=== PATIENT | female | born 1930 | race Caucasian/White ===

== ENCOUNTER 2016-08-18 12:08 | Emergency (ER) | payer MEDICARE ==
[~2016-08-18] VITALS: Ht 167.6 cm; Wt 68.0 kg
[~2016-08-18 12:08] MED LIST: AMLODIPINE BESY1 TAB PO; COUMADIN3 M1 PO; COUMADIN4 M2 PO; LISINOPRIL5 MG PO; MEDS; METOPROLOL SUCC25 M2 PO; OMEPRAZOLE D/R20 MG PO; PLAVIX75 M1 PO; PRAVASTATIN SOD40 MG PO; TRAMADOL HCL50 MG PO; TRIAMTERENE/HCT1 TA3 PO
[2016-08-18 12:42] LABS: BASO % 0.5 % (0.0-1.0); EOS # 0.1 10*3/uL (0.0-0.4); EOS % 1.7 % (1.0-4.0); HEMATOCRIT 39.9 % (37.0-47.0); HEMOGLOBIN 13.4 g/dl (12.0-16.0); LYMPH # 0.8 10*3/uL (1.3-4.4); LYMPH % 13.9 % (27.0-41.0); MEAN CELL VOLUME 91.1 fl (81.0-99.0); MEAN CORPUSCULAR HGB 30.6 pg (27.0-31.0); MEAN CORPUSCULAR HGB CONC 33.6 g/dl (33.0-37.0); MONO # 0.5 10*3/uL (0.1-1.0); NEUT # 4.4 10*3/uL (2.3-7.9); NEUT % 75.6 % (47.0-73.0); PLATELET COUNT AUTOMATED 215 10*3/uL (130-400); RED BLOOD COUNT 4.38 10*6/uL (4.10-5.10); RED CELL DISTRI WIDTH 13.2 % (0-14.5); WHITE BLOOD COUNT 5.8 10*3/uL (4.8-10.8)
[2016-08-18 12:52] LABS: INTERNATIONAL NORM RATIO 1.5 (2.0-3.5); PROTHROMBIN TIME 16.7 SECONDS (9.0-12.4)
[2016-08-18 13:04] LABS: ALBUMIN 4.2 gm/dl (3.1-4.5); BILIRUBIN, TOTAL 0.7 mg/dl (0.2-1.0); MAGNESIUM 2.2 mg/dL (1.5-2.1); POTASSIUM 3.4 mmol/L (3.5-5.1); TOTAL PROTEIN 7.7 gm/dL (6.4-8.2)
[2016-08-18 13:10] LABS: TROPONIN I 0.329 ng/ml (<0.045)
[2016-08-18 13:31] LABS: BILIRUBIN NEGATIVE (NEGATIVE); BLOOD NEGATIVE (NEGATIVE); CLARITY CLEAR (CLEAR); COLOR YELLOW (YELLOW); GLUCOSE NEGATIVE (NEGATIVE); KETONE NEGATIVE (NEGATIVE); LEUKO ESTERASE NEGATIVE (NEGATIVE); NITRITE NEGATIVE (NEGATIVE); PH 5.5 (5.0-9.0); PROTEIN NEGATIVE (NEGATIVE); UROBILINOGEN 0.2 E.U./dl (0.2-1.0)
[2016-08-18 13:39] LABS: URINE REFLEX COMMENT NO (NO); WBC 0-2 wbc/hpf (0-5)
== END 2016-08-18 14:39 | disposition short-term general hospital (02) ==
LOC: ED 12:08
PROVIDERS: Student in an Organized Health Care Education/Training Program
DX: R51 Headache (principal); I63.9 Cerebral infarction, unspecified; I48.91 Unspecified atrial fibrillation; I25.2 Old myocardial infarction; Z86.2 Personal history of diseases of the blood and blood-forming organs and certain disorders involving the immune mechanism; Z79.899 Other long term (current) drug therapy; Z79.01 Long term (current) use of anticoagulants; W01.0XXA Fall on same level from slipping, tripping and stumbling without subsequent striking against object, initial encounter; Y93.89 Activity, other specified; Y92.009 Unspecified place in unspecified non-institutional (private) residence as the place of occurrence of the external cause; Y99.9 Unspecified external cause status

== ENCOUNTER 2017-06-06 01:42 | Inpatient (IN) | payer MEDICARE ==
[~2017-06-06] VITALS: Ht 157.5 cm; Wt 58.7 kg
[2017-06-06] VITALS (10 sets, daily range): BP systolic 103–142; BP diastolic 55–75
--- NOTE | ~2017-06-06 | CON ---
[place], [place] REPORT OF CONSULTATION NAME: JERSON GILBERT UNIT #: [id number] ROOM: [facility] DOCTOR: CHAPO RODRIGUEZ MD BIRTHDATE: [birth year] DOS: 06/06/2017 CARDIOLOGY CONSULTATION REASON FOR CONSULTATION: Chest pain and elevated troponin. HISTORY OF PRESENT ILLNESS: The patient is an 87-year-old woman who is a very poor historian. She appears to have a hard time with dates. Typically, she receives her cardiac care at the [facility] in [place], [place]. However, she presented to the hospital on this occasion after suffering sharp substernal chest pains at home. Her daughter who was visiting gave her 3 baby aspirin and she was transported to the Emergency Room. The patient states that her pains have subsequently resolved and she is currently comfortable. However, her troponin has risen to over 2. Her findings in the hospital are consistent with a non-ST elevation lateral wall myocardial infarction. Confounding her management is the fact that she does have atrial fibrillation and also has a history of previous strokes. She reportedly did have a catheterization and a stent placed in the past. She states that it was within the last 3 or 4 months, but the history obtained in the Emergency Room was that it was a few years ago. On admission, she does not have aspirin listed as one of her home medicines, although she is on Eliquis. The Eliquis would be adequate for stroke prophylaxis with atrial fibrillation, but would not be adequate for stent preservation if she truly did have angioplasty and stenting within the last few months. Past history is obtained mostly from the old records since the patient is a poor historian and no family is available. The patient reportedly did have an acute coronary syndrome with catheterization and angioplasty done at the [facility] in [place]. Those records have been requested. She does have atrial fibrillation. She does have mild chronic kidney disease. She has had a history of stroke. She has a history of hypertension and hyperlipidemia. She is status post hysterectomy. MEDICATIONS: Prior to admission include amlodipine 10 mg daily, apixaban 5 mg b.i.d., escitalopram 5 mg daily, metoprolol 25 mg daily, pravastatin 40 mg at bedtime, prednisone 5 mg q.i.d. (indication not known) and triamterene with hydrochlorothiazide 1 tablet daily. ALLERGIES: The patient denies any drug allergies. FAMILY HISTORY: Both parents are . Her mother of breast cancer. She does not know what caused her father's . REVIEW OF SYSTEMS: The patient denies diplopia. She is easily confused. She denies lightheadedness or syncope. She denies nausea or vomiting. She denies diaphoresis. She does admit to chest heaviness when she climbs stairs. She denies any change in bowel or bladder habits. She denies blood in her urine or stools. She denies any peripheral edema. The remainder of the review of systems is negative except as noted above. SOCIAL HISTORY: The patient lives with her . She does not smoke or [place], [place] REPORT OF CONSULTATION NAME: JERSON GILBERT UNIT #: [id number] ROOM: [facility] DOCTOR: CHAPO RODRIGUEZ MD BIRTHDATE: [birth year] consume alcohol and does not use illicit drugs. PHYSICAL EXAMINATION: GENERAL: The patient is a slender, elderly white female who is awake and alert. VITAL SIGNS: Pulse is 75 and irregularly irregular, blood pressure is 123/62. She is afebrile. She weighs 58.6 kg and has a body mass index of 23.7. HEENT: Normocephalic and atraumatic. Extraocular muscles are intact. Sclerae are clear. Pupils are round and react to light. The oral mucosa is moist. Tongue is midline. NECK: Supple. She does have mild jugular distention when lying at a 45 degree angle. She has no neck or supraclavicular masses and no thyromegaly. RESPIRATORY: Respirations are unlabored. Her chest is clear to auscultation and percussion. She has no presacral edema or chest wall tenderness. HEART: Has an irregularly irregular rhythm. There are no murmurs or gallops. The PMI is not displaced. She has no precordial heave, lift or thrill. ABDOMEN: Soft and normally active without masses, organomegaly or bruits. EXTREMITIES: Showed no edema. Peripheral pulses are absent in the feet. LABORATORY DATA: I reviewed her electrocardiogram. She has atrial fibrillation with a controlled ventricular response and lateral ST changes, but no ST elevation. Serial troponin levels were 0.183 on admission, followed by 0.534, followed by 2.190. Hemoglobin is 13.7, hematocrit 40.3. There were 9600 white cells and 284,000 platelets. Sodium is 140, potassium 3.1, BUN 40, creatinine 1.12. Estimated GFR 46. Lactic acid level was 1.4. Total cholesterol is 175 with LDL of 78 and HDL of 66. IMPRESSIONS: 1. Non-ST elevation myocardial infarction. 2. History of coronary artery disease, status post stent at sometime in the past. 3. History of transient ischemic attack and stroke, details not available. 4. Atrial fibrillation. The patient's rate is well controlled and she is on Eliquis for stroke prophylaxis. 5. Hypertension. 6. Hyperlipidemia, on therapy. PLAN: The patient's management is difficult because her history is largely unknown. If she truly did have a stent within the last 6 months, she should be on dual antiplatelet therapy in addition to a direct oral anticoagulant. We will be requesting records from the [facility] in [place]. For now, however, she will be treated with a heparin drip and aspirin. She is pain free and shows no acute ST elevation, so other medications will be withheld, aside from beta blockers for the time being. Depending on her progress, we may decide on a risk stratifying stress test later in her hospitalization. I thank the hospitalist service for asking our advice regarding her care. [place], [place] REPORT OF CONSULTATION NAME: JERSON GILBERT UNIT #: [id number] ROOM: [facility] DOCTOR: CHAPO RODRIGUEZ MD BIRTHDATE: [birth year] CHAPO RODRIGUEZ MD CM:CONSTR:REPORT OF CONSULTATION 0 06/06/17940 interface
[2017-06-06] MEDS ORDERED: ELIQUIS5 M1 PO (01:47)
[2017-06-06] MEDS ORDERED: MILLIPRED5 MG PO (01:50)
[2017-06-06 01:52] LABS: BASO % 0.3 % (0.0-1.0); EOS # 0.1 10*3/uL (0.0-0.4); EOS % 0.9 % (1.0-4.0); HEMATOCRIT 39.4 % (37.0-47.0); HEMOGLOBIN 13.3 g/dl (12.0-16.0); LYMPH # 2.1 10*3/uL (1.3-4.4); LYMPH % 22.8 % (27.0-41.0); MEAN CELL VOLUME 92.7 fl (81.0-99.0); MEAN CORPUSCULAR HGB 31.3 pg (27.0-31.0); MEAN CORPUSCULAR HGB CONC 33.8 g/dl (33.0-37.0); MEAN PLATELET VOLUME 9.7 fl (9.6-12.3); MONO # 1.1 10*3/uL (0.1-1.0); MONO % 11.6 % (3.0-9.0); NEUT # 5.9 10*3/uL (2.3-7.9); NEUT % 64.1 % (47.0-73.0); PLATELET COUNT AUTOMATED 294 10*3/uL (130-400); RED BLOOD COUNT 4.25 10*6/uL (4.10-5.10); WHITE BLOOD COUNT 9.3 10*3/uL (4.8-10.8)
[2017-06-06] MEDS ORDERED: LEXAPRO5 M1 PO (01:52)
[2017-06-06] MEDS ORDERED: AMLODIPINE BESY10 MG PO (01:53)
[2017-06-06 02:02] LABS: ACT PARTIAL THROMBO TIME 25.8 SECONDS (20.8-31.5); INTERNATIONAL NORM RATIO 1.1 (2.0-3.5)
[2017-06-06 02:13] LABS: CREATININE 1.31 mg/dL (0.55-1.02); POTASSIUM 3.6 mmol/L (3.5-5.1); TOTAL PROTEIN 7.5 gm/dL (6.4-8.2)
[2017-06-06 02:18] LABS: TROPONIN I 0.183 ng/ml (<0.045)
[2017-06-06 04:49] LABS: BASO % 0.2 % (0.0-1.0); EOS # 0.1 10*3/uL (0.0-0.4); HEMATOCRIT 40.3 % (37.0-47.0); HEMOGLOBIN 13.7 g/dl (12.0-16.0); LYMPH # 2.3 10*3/uL (1.3-4.4); LYMPH % 23.8 % (27.0-41.0); MEAN CELL VOLUME 91.6 fl (81.0-99.0); MEAN CORPUSCULAR HGB 31.1 pg (27.0-31.0); MEAN PLATELET VOLUME 10.1 fl (9.6-12.3); MONO # 1.1 10*3/uL (0.1-1.0); MONO % 11.4 % (3.0-9.0); NEUT # 6.1 10*3/uL (2.3-7.9); NEUT % 63.4 % (47.0-73.0); PLATELET COUNT AUTOMATED 284 10*3/uL (130-400); RED CELL DISTRI WIDTH 12.9 % (0-14.5); WHITE BLOOD COUNT 9.6 10*3/uL (4.8-10.8)
[2017-06-06 05:04] LABS: ALBUMIN 3.9 gm/dl (3.1-4.5); CREATININE 1.12 mg/dL (0.55-1.02); POTASSIUM 3.1 mmol/L (3.5-5.1); TOTAL PROTEIN 7.5 gm/dL (6.4-8.2)
[2017-06-06 05:12] LABS: THYROID STIM HORMONE (HS) 3.59 uIU/ml (0.358-4.75)
== END 2017-06-06 21:17 | disposition short-term general hospital (02) | DRG 280 ==
LOC: ED 01:42 → ICCU 02:33 → EDHOLD 02:33 → ICCU 02:40
PROVIDERS: Family Medicine Adult Medicine; Student in an Organized Health Care Education/Training Program
DX: I21.4 Non-ST elevation (NSTEMI) myocardial infarction (principal); N17.0 Acute kidney failure with tubular necrosis; J98.11 Atelectasis; E11.22 Type 2 diabetes mellitus with diabetic chronic kidney disease; N18.3 Chronic kidney disease, stage 3 (moderate); E78.5 Hyperlipidemia, unspecified; I12.9 Hypertensive chronic kidney disease with stage 1 through stage 4 chronic kidney disease, or unspecified chronic kidney disease; J43.9 Emphysema, unspecified; E55.9 Vitamin D deficiency, unspecified; E87.6 Hypokalemia; D72.810 Lymphocytopenia; I48.2 Chronic atrial fibrillation; I25.119 Atherosclerotic heart disease of native coronary artery with unspecified angina pectoris; Z90.710 Acquired absence of both cervix and uterus; Z86.73 Personal history of transient ischemic attack (TIA), and cerebral infarction without residual deficits; Z80.3 Family history of malignant neoplasm of breast; Z79.899 Other long term (current) drug therapy